=== PATIENT | male | born 1960 | race Caucasian/White ===

== ENCOUNTER 2017-09-26 07:29 | Day surgery (SDC) | payer BC, OTHER ==
[2017-09-22 07:19] VITALS: BMI 41.0
[~2017-09-26] VITALS: Ht 165.1 cm; Wt 114.1 kg
[~2017-09-26 07:29] MED LIST: ASPI81TA28 PO; ATROPINE SULFATE 0.1 MG/ML 5ML SYR IV PRN; EpHEDrine SULFATE INJ 50 MG/ML AMP IV PRN; FENTANYL CITRATE INJ 50 MCG/1 ML 2 ML VIAL IV PRN; HYDROmorphone INJ 1 MG/ML SYR IV PRN; LACTATED RINGER'S 1000ML 1,000 ML IV SCH; MULT-221 PO; OMEP40CA41 PO; ONDANSETRON INJ 2 MG/ML 2 ML VIAL IV PRN; PHENYLEPHRINE 100MCG/ML 5ML SYR IV PRN; PROMETHAZINE HCL INJ 12.5 MG in SODIUM CHLORIDE 0.9% 50ML 50 ML IV PRN; SIMV10TA2 PO
[2017-09-26 08:17] VITALS: BP 136/76; PULSE 68; TEMP 36.7; O2SAT 96; Ht 165.1 cm; Wt 114.1 kg
--- NOTE | 2017-09-26 09:11 | History & Physical Bridge Note ---
H&P Re-Evaluation Bridge Note: I have examined the patient, reviewed the History & Physical and in the interval since the performance of the History & Physical I have noted the following changes of clinical significance: No changes noted
[2017-09-26] MEDS ORDERED: SODIUM CHLORIDE 0.9% 1000ML 1,000 ML IV SCH (09:31)
--- NOTE | 2017-09-26 09:31 | Discharge Instructions ---
Discharge Instructions Date of Service Sep 26, 2017. Admission Reason for Admission: Vocal Cord Polyp Discharge Discharge Diagnosis / Problem: Right vocal cord lesion Discharge Goals Goal(s): Improve function Activity Recommendations Activity Limitations: resume your previous activity No speaking or whispering for one week. . Current Hospital Diet Patient's current hospital diet: Discharge Diet Recommended Diet: Regular Diet Procedures Procedures Performed: Microdirect laryngoscopy with biopsy of a right true vocal cord lesion and use of CO2 laser. Pending Studies Studies pending at discharge: no Medical Emergencies . Who to Call and When: Medical Emergencies: If at any time you feel your situation is an emergency, please call 911 immediately. . Non-Emergent Contact Non-Emergency issues call your: Specialist . . "Provider Documentation" section prepared by Parish Vick. .
[2017-09-26] MEDS ORDERED: SUCCINYLCHOLINE CHLORIDE 20 MG/ML 10 ML VIAL IV ONE ×2 (09:39→10:41)
[2017-09-26] MEDS ORDERED: FENTANYL CITRATE INJ 50 MCG/1 ML 2 ML VIAL ONE ×2 (09:39→11:05)
[2017-09-26] MEDS ORDERED: PROPOFOL IV EMULSION 10 MG/ML 20 ML VIAL IV ONE ×2 (09:39→10:41)
[2017-09-26] MEDS ORDERED: LIDOCAINE HCL 2% 2 ML VIAL (20MG/ML) ONE ×2 (09:39→10:41)
[2017-09-26] MEDS ORDERED: MIDAZOLAM HCL 1 MG/ML 2ML VIAL ONE ×2 (09:39→11:05)
[2017-09-26] MEDS ORDERED: ACETAMINOPHEN/HYDROCODONE ELIX 15 ML/CUP UDP PO PRN (09:45)
[2017-09-26] MEDS ORDERED: COCAINE HCL 4% / 4 ML VIAL ONE (10:07)
[2017-09-26] MEDS ORDERED: METHYLENE BLUE 0.5% 10 ML VIAL ONE (10:17)
[2017-09-26] MEDS ORDERED: ROCURONIUM BROMIDE 10 MG/ML 5 ML VIAL IV ONE ×2 (10:45→10:58)
[2017-09-26] MEDS ORDERED: GLYCOPYRROLATE INJ 0.2 MG/ML VIAL ONE (10:58)
[2017-09-26] MEDS ORDERED: ONDANSETRON INJ 2 MG/ML 2 ML VIAL ONE (10:58)
[2017-09-26] MEDS ORDERED: NEOSTIGMINE METHYLSULFATE 5 MG/5 ML SYR ONE (10:58)
--- NOTE | 2017-09-26 10:59 | [facility] Post Operative Brief Note ---
Immediate Operative Summary Operative Date Sep 26, 2017. Pre-Operative Diagnosis Right vocal cord polyp Post-Operative Diagnosis Same Procedure(s) Performed Microdirect laryngoscopy with biopsy of a right true vocal cord lesion and use of CO2 laser. Surgeon Nava Technical Systems Architect Surgeon(s) None Estimated Blood Loss 0ml Findings Consistent with Post-Op Diagnosis Specimens A. Right true vocal cord polyp Anesthesia Type General Complication(s) none Disposition Accompanied Pt To Recover: no Disposition: Recovery Room / PACU
--- NOTE | 2017-09-26 11:10 | [facility] Operative Report ---
Operative Report Operative Date Sep 26, 2017. Pre-Operative Diagnosis Right vocal cord polyp Post-Operative Diagnosis Same Procedure(s) Performed Microdirect laryngoscopy with biopsy of a right true vocal cord lesion and use of CO2 laser. Surgeon Nava Retinal Angiographer Surgeon(s) None Estimated Blood Loss 0ml Specimens A. Right true vocal cord polyp Drains None Anesthesia Type General Complication(s) none Disposition no Recovery Room / PACU Indications 56 year old man with dysphonia and right true vocal cord polyp with failure of medical management. Description of Procedure After uneventful intubation, the laser protected ET tube was taped and the patient turned 90 degrees from the anesthesiologist. Teeth were protected with the dental protective device, and the Dedo scope was found to be too large. Therefore the anterior commissure scope was introduced, and held in good position with the Pro suspension device. The subglottis and glottis packed with neurosurgical pledgets soaked in 4% cocaine. Then, the polyp was grasped with a micro-cupped forceps and removed almost in its entirety. Another neurosurgical pledgets soaked in 4% cocaine was placed over the biopsy site for one minute, while anesthesia allowed the ventilation 02 to be at 30% for one minute. The Elevate hand piece for the CO2 laser was used on 4 Carpenter continuous to treat the base of the polyp, and this stopped all bleeding. Anterior commissure scope, Pro suspension device, and dental protective device were removed. Patient was allowed to wake-up on his own and was transported to recovery in [facility]. I attest to the content of the Intraoperative Record and any orders documented therein. Any exceptions are noted below.
[2017-09-26 12:20] VITALS: BP 127/81; PULSE 76; TEMP 36.9; O2SAT 92
[2017-09-26 12:50] VITALS: BP 132/80; PULSE 76; TEMP 36.9; O2SAT 95
--- NOTE | 2017-09-26 13:04 | Anesthesiology Progress Note ---
Anesthesia Post Op Note Date & Time Sep 26, 2017 at 13:04 Vital Signs Pain Intensity: 4 Vital Signs Past 12 Hours Date Time Temp Pulse Resp B/P (MAP) Pulse Ox O2 Delivery O2 Flow Rate FiO2 09/26/17 12:20 36.9 76 20 127/81 92 Nasal Cannula 3 09/26/17 12:00 73 20 130/87 92 Nasal Cannula 2 09/26/17 11:50 37.1 73 20 142/91 92 Nasal Cannula 2 09/26/17 11:40 75 16 154/90 98 Room Air 09/26/17 11:30 83 16 168/88 98 Oxymask 7 09/26/17 11:20 36.5 82 16 184/78 97 Oxymask 7 09/26/17 08:17 36.7 68 18 136/76 (96) 96 Room Air Notes Mental Status: alert / awake / arousable, participated in evaluation Pt Amnestic to Procedure: Yes Nausea / Vomiting: adequately controlled Pain: adequately controlled Airway Patency, RR, SpO2: stable & adequate BP & HR: stable & adequate Hydration State: stable & adequate Anesthetic Complications: no major complications apparent
== END 2017-09-26 13:13 | disposition home or self-care (01) ==
LOC: C.ACU 07:29
PROVIDERS: ATTEND Otolaryngology
DX: J38.1 Polyp of vocal cord and larynx (principal); R49.0 Dysphonia; K21.9 Gastro-esophageal reflux disease without esophagitis; F17.220 Nicotine dependence, chewing tobacco, uncomplicated; E78.5 Hyperlipidemia, unspecified; E66.9 Obesity, unspecified; H90.3 Sensorineural hearing loss, bilateral; Z79.82 Long term (current) use of aspirin; Z79.899 Other long term (current) drug therapy; Z81.8 Family history of other mental and behavioral disorders; Z82.49 Family history of ischemic heart disease and other diseases of the circulatory system

== ENCOUNTER 2020-12-10 06:03 | Observation (INO) ==
--- NOTE | 2020-11-10 11:04 | PAT Medication Instructions ---
Medication Instructions Date of Service November 10, 2020 Home Medications aspirin 81 mg PO QPM multivitamin 1 tab PO QPM omeprazole 40 mg PO QPM simvastatin 10 mg PO PM meloxicam 15 mg PO QAM ASK your surgeon for instructions meloxicam 15 mg PO QAM Take evening before surgery aspirin 81 mg PO QPM (take as normal unless told otherwise by surgeon) multivitamin 1 tab PO QPM omeprazole 40 mg PO QPM simvastatin 10 mg PO PM Other Notes If you have any questions please call us at [phone] or [phone] or [phone] or [phone]
--- NOTE | 2020-11-12 11:11 | Anesthesiology Consultation ---
Date of Service November 12, 2020 Assessment & Plan (1) Encounter for pre-operative examination: - COVID screening: Per assessment on 11/12: Travel screen negative, no known COVID-19 positive contacts or current COVID-19 related symptoms. Patient was personally COVID positive early 06/2020 ([facility], [facility]) > symptoms at time of URI symptoms, rhinorrhea, decreased taste > resolved/recovered at home. Patient fully vaccinated. Surgeon arranging preop COVID testing. Awaiting results. - Hx glidescope intubation: Right shoulder arthroscopy with large RCR (06/13/19): Grade 1 view with Glidescope #4, ETT 8.0 + PNB at [facility] - ASA instructions: to continue perioperatively unless told otherwise by surgeon/prescriber Chart Review Chart Review: Acceptable Risk for Surgery (pending surgeon-ordered PCP clearance) and Patient seen in Pre Admission Testing Teaching & Discussion Pre-Anesthesia Teaching/Discussion Notes: Instructed NPO after midnight before surgery,except medications with 15 cc of water. Medication instructions provided according to the PAT guidelines. History Surgery Operation Date: 12/10/20 11:00 Proposed Procedures p Right Total Knee Arthroplasty - Colin Hoskins MD Height/Weight Height: 5 ft 4 in Weight: 103.8 kg Allergies Allergy/AdvReac Type Severity Reaction Status Date / Time latex Allergy Skin Verified 11/10/20 11:01 redness Medications Home Medications Medication Instructions Recorded Confirmed Last Taken aspirin 81 mg PO QPM 05/10/19 11/10/20 06/12/19 multivitamin 1 tab PO QPM 05/10/19 11/10/20 06/12/19 omeprazole 40 mg PO QPM 05/10/19 11/10/20 06/12/19 simvastatin 10 mg PO PM 05/10/19 11/10/20 06/12/19 meloxicam 15 mg PO QAM 11/10/20 11/10/20 Unknown Past Medical History Medical History GERD (gastroesophageal reflux disease) controlled History of COVID-19 Dx early 06/2020 ([facility], [facility]) > symptoms at time of URI symptoms, rhinorrhea, decreased taste > resolved/recovered at home Hyperlipidemia Osteoarthritis Exercise / Class Metabolic Activity II 4-5 Yardwork/Stairs/Walk up hill (one flight of stairs (no chest pain, no sob)) Past Family History Family History Other No known health problems Past Surgical History Surgical History History of arthroscopy of shoulder Right shoulder arthroscopy with large RCR (06/13/19): Grade 1 view with Glidescope #4, ETT 8.0 + PNB at [facility] History of back surgery Lower lumbar fusion (as teen) History of colonoscopy History of esophagogastroduodenoscopy (EGD) History of meniscectomy of left knee History of right inguinal hernia repair History of vasectomy History of vocal cord polypectomy Vocal cord polyp excision (09/26/17): Grade view 2, Diehl#2, 6.0 laser tube/glidescope used to verify placement History of wisdom tooth extraction Status post LASIK surgery Past Anesthesia History No Family Hx of Anesthesia Complications and Other Patient states that he was moving too much during PNB placement with shoulder surgery (2019; [facility]) and needed "to be put to sleep" in order to place. Patient reports post-op low oxygen levels after shoulder surgery (2019; [facility]). Per anesthesia communication note 06/13/19, "Oxygen saturations in seconary pacu as low as low 80s. Decreased air movement in R Lung. Patient asymptomatic sitting in chair. We did ISB and checked CXR, showing hemidiaphragm elevation and atelectasis secondary to the block. had the patient walk twice down hallway which he had mild dyspnea but did not have to stop. saturations up to low 90s. I spoke at length with the patient and his about dispo vs obs overnight in the hospital, and they prefer dispo to home. I suspect this is due to the short acting bupivicane in the block and should improve in 8-12 hours. However, we discussed keeping mobile as much as possible today, and avoiding all narcotics today as well (the patient is currently pain free with the block). If he has any progression of his dyspnea or any change in his level of conciousness, his will present him to the ER near their home. Any rapid onset of symptoms will prompt a 911 call. The patient and his are comfortable with this plan." History of PONV No Hx of PONV and No Hx of Motion Sickness Social History Smoking Status: Former smoker tobacco type: cigarettes Do You Dip or Chew Tobacco: Yes (1 can/week- advised none DOS) Smoking End Date: Quit 8+ years ago Hx Alcohol Use: Yes Alcohol type: beer alcohol intake frequency: a few times a week Hx Substance Use: No Review of Systems No snoring. Patient denies chest pain, shortness of breath, dyspnea on exertion, fever, chills, cough, wheezing, palpitations. Physical Exam Vital Signs VITALS BP 138/81 P 66 TEMP 98.4 SP02 96%RA RESP 18 PHYSICAL Full cervical extension range of motion. Full TMJ range of motion. TMD 4 finger breaths Mallampati Score 3 Dentition: intact Lungs: clear throughout to auscultation Cardiac: regular rate and rhythm, no murmurs noted Spine: normal Carotid arteries: negative bruit Extremities: no edema Trimmed camilo Thick neck Testing Laboratory Results 11/12/20 11:59 11/12/20 11:59 PT 10.8 Seconds (9.0-12.0) 11/12/20 11:59 INR 1.1 (0.9-1.1) 11/12/20 11:59 APTT 27.1 Seconds (21.0-31.0) 11/12/20 11:59 Hemoglobin A1c 5.9 % (4.5-5.6) H 11/12/20 11:59 Urine Color Yellow 11/12/20 Unknown Urine Appearance Clear (Clear) 11/12/20 Unknown Urine pH 6.5 (4.5-7.5) 11/12/20 Unknown Ur Specific [place] 1.024 (1.000-1.030) 11/12/20 Unknown Urine Protein Negative (Negative) 11/12/20 Unknown Urine Glucose (UA) Negative (Negative) 11/12/20 Unknown Urine Ketones Negative (Negative) 11/12/20 Unknown Urine Nitrite Negative (Negative) 11/12/20 Unknown Ur Leukocyte Esterase Negative (Negative) 11/12/20 Unknown Blood Type O Positive 11/12/20 11:59 Antibody Screen NEGATIVE 11/12/20 11:59 Electrocardiogram Date: 11/12/20 Findings: + NSR @ (60) Chest X-Ray Date: 11/12/20 Findings: + NAD
[2020-11-12 12:29] LABS: Basophils # (auto) 0.02 K/uL (0-0.2); Basophils % (auto) 0.4 %; Eosinophils # (auto) 0.19 K/uL (0-0.5); Eosinophils % (auto) 3.7 %; Hematocrit (blood only) 42.7 % (42-52); Immature Granulocytes # (auto) 0.01 K/uL (0.00-0.02); Immature Granulocytes % (auto) 0.2 %; Lymphocytes # (auto) 2.33 K/uL (1.2-3.4); Lymphocytes % (auto) 45.5 %; Mean Corpuscular Hgb Conc 32.8 g/dL (32-36); Mean Corpuscular Volume 100.7 fL (80-100); Mean Platelet Volume 12.3 fL (7.4-10.4); Monocytes # (auto) 0.63 K/uL (0.11-0.59); Monocytes % (auto) 12.3 %; Neutrophils # (auto) 1.94 K/uL (1.4-6.5); Neutrophils % (auto) 37.9 %; Platelet Count 150 K/uL (130-400); RDW Coefficient of Variation 13.6 % (11.5-14.5); RDW Standard Deviation 50.1 fL (36.4-46.3); Red Blood Count 4.24 M/uL (4.7-6.1); White Blood Count 5.12 K/uL (4.8-10.8)
[2020-11-12 12:33] LABS: Estimated Average Glucose 123 mg/dl; Hemoglobin A1C 5.9 % (4.5-5.6)
[2020-11-12 12:37] LABS: Appearance Urine Clear (Clear); Bilirubin Urine Negative (Negative); Blood Urine Negative (Negative); Color Urine Yellow; Glucose Urine UA Negative (Negative); Ketones Urine Negative (Negative); Leukocyte Esterase Urine Negative (Negative); Nitrite Urine Negative (Negative); Protein Urine Negative (Negative); Specific Gravity Urine 1.024 (1.000-1.030); Urobilinogen Urine Negative (Negative); pH Urine 6.5 (4.5-7.5)
[2020-11-12 12:37] LABS: INR 1.1 (0.9-1.1); Partial Thromboplastin Time 27.1 Seconds (21.0-31.0); Prothrombin Time 10.8 Seconds (9.0-12.0)
--- NOTE | 2020-11-12 12:42 | XRay Report ---
XR chest Pre-admission PA/Lat CLINICAL HISTORY: Preoperative evaluation. COMPARISON STUDY: Chest radiograph June 13, 2019. FINDINGS: Lung volumes are normal. Lungs are clear. There is no pneumothorax or pleural effusion. Car diac size is normal. Mediastinal contours are normal. There is no evidence for pulmonary edema. IMPRESSION: No acute cardiopulmonary findings. ACT 112: Negative or not required by law. Electronically signed by: Ilya Barbour M.D. 11/12/2020 12:41 PM
[2020-11-12 12:46] LABS: BUN Creatinine Ratio 28.7 (10-20); Calcium 9.1 mg/dl (8.5-10.1); Creatinine Clr Calc Pharmacy 108.4 ml/min; Est GFR (African American) 112.9 ml/min; Est GFR (Non-African American) 97.4 ml/min; Potassium 4.2 mmol/L (3.5-5.1)
--- NOTE | 2020-11-13 06:14 | Electrocardiogram Report ---
Test Reason : Blood Pressure : / mmHG Vent. Rate : 060 BPM Atrial Rate : 060 BPM P-R Int : 162 ms QRS Dur : 088 ms QT Int : 400 ms P-R-T Axes : 071 065 051 degrees QTc Int : 400 ms Normal sinus rhythm Normal ECG When compared with ECG of 13-MAY-2019 10:44, No significant change was found Confirmed by Km Lopez ([id number]) on 11/13/2020 6:14:15 AM Referred By: Colin Hoskins Confirmed By:Km Lopez
--- NOTE | 2020-12-08 21:53 | History & Physical Report ---
Date of Service December 08, 2020 Assessment & Plan (1) Primary osteoarthritis of right knee: Treatment options discussed with patient. He has failed conservative measures as above. He would like to proceed with surgical intervention. Risks, benefits and alternatives to surgery including but not limited to infection, DVT, pain, stiffness, need for revision surgery, damage to blood vessels, damage to nerves, PE, , were discussed with the patient and they wish to proceed. Plan on right total knee arthroplasty at [facility] on 12/10/[address] Hoskins. Will plan on ASA 81 mg BID x 1 mo post op for DVT prophylaxis. Will plan on outpatient PT post discharge. All questions answered. F/u post op. History of Present Illness Chief Complaint: Right knee pain Primary Care Provider: Micah Fabian 60 year old male with PMHx significant for high cholesterol and GERD presents with longstanding right knee pain. Pain interfering with his ability to carry out normal daily and leisure activities. He has failed conservative measures including multiple injections, bracing, NSAIDs, and Tylenol. He would like to proceed with surgical intervention. Patient denies headaches, sweats, fevers, chills, double vision, blurred vision, cough, sore throat, dysphagia, chest pain, sob, wheezing, n/v/d/c, numbness, tingling, fatigue, urinary symptoms, mood disorders. ROS positive for right knee pain and stiffness. Allergies Allergy/AdvReac Type Severity Reaction Status Date / Time latex Allergy Skin Verified 11/10/20 11:01 redness Home Medications Medication Instructions Recorded Confirmed Type aspirin 81 mg PO QPM 05/10/19 11/10/20 History multivitamin 1 tab PO QPM 05/10/19 11/10/20 History omeprazole 40 mg PO QPM 05/10/19 11/10/20 History simvastatin 10 mg PO PM 05/10/19 11/10/20 History meloxicam 15 mg PO QAM 11/10/20 11/10/20 History Past Med/Surg History Medical History GERD (gastroesophageal reflux disease) controlled History of COVID-19 Dx early 06/2020 ([facility], [facility]) > symptoms at time of URI symptoms, rhinorrhea, decreased taste > resolved/recovered at home Hyperlipidemia Osteoarthritis Surgical History History of arthroscopy of shoulder Right shoulder arthroscopy with large RCR (06/13/19): Grade 1 view with Glidescope #4, ETT 8.0 + PNB at [facility] History of back surgery Lower lumbar fusion (as teen) History of colonoscopy History of esophagogastroduodenoscopy (EGD) History of meniscectomy of left knee History of right inguinal hernia repair History of vasectomy History of vocal cord polypectomy Vocal cord polyp excision (09/26/17): Grade view 2, Diehl#2, 6.0 laser tube/glidescope used to verify placement History of wisdom tooth extraction Status post LASIK surgery Family History Other No known health problems Social History Smoking Status: Former smoker Second Hand Exposure: Yes (PARENTS SMOKED); Hx Alcohol Use: Yes Alcohol type: beer Hx Substance Use: No Preferred Language: Malay Communication Ability: Effective 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 Mild effusion. Mild crepitation. Tenderness medial joint line. Stable to varus stress, mild laxity with valgus stress. Positive Bhupendra's. ROM 0-125 degrees. Skin: no rashes, warm and dry Neurologic: patellar DTR's 2+ bilat, sensation intact Psychiatric: A+Ox3, euthymic affect Results & Data ([facility]) Laboratory Results Lab Results 11/12/20 11/12/20 11/12/20 Range/Units 11:59 11:59 11:59 WBC 5.12 (4.8-10.8) K/uL RBC 4.24 L (4.7-6.1) M/uL Hgb 14.0 (14.0-18.0) g/dL Hct 42.7 (42-52) % MCV 100.7 H (80-100) fL MCH 33.0 (25-34) pg MCHC 32.8 (32-36) g/dL RDW Std Deviation 50.1 H (36.4-46.3) fL RDW Coeff of Kaylin 13.6 (11.5-14.5) % Plt Count 150 (130-400) K/uL MPV 12.3 H (7.4-10.4) fL Immature Gran % (Auto) 0.2 % Neut % (Auto) 37.9 % Lymph % (Auto) 45.5 % [place] % (Auto) 12.3 % Eos % (Auto) 3.7 % Baso % (Auto) 0.4 % Neut # (Auto) 1.94 (1.4-6.5) K/uL Lymph # (Auto) 2.33 (1.2-3.4) K/uL [place] # (Auto) 0.63 H (0.11-0.59) K/uL Eos # (Auto) 0.19 (0-0.5) K/uL Baso # (Auto) 0.02 (0-0.2) K/uL Immature Gran # (Auto) 0.01 (0.00-0.02) K/uL PT 10.8 (9.0-12.0) Seconds INR 1.1 (0.9-1.1) APTT 27.1 (21.0-31.0) Seconds PTT Ratio 1.0 Sodium (136-145) mmol/L Potassium (3.5-5.1) mmol/L Chloride (98-107) mmol/L Carbon Dioxide (21-32) mmol/L Anion Gap (3-11) BUN (7-18) mg/dl Creatinine (0.6-1.4) mg/dl Est Cr Clr Drug Dosing ml/min Est GFR ( Amer) ml/min Est GFR (Non-Af Amer) ml/min BUN/Creatinine Ratio (10-20) Glucose (70-99) mg/dl Estimat Average Glucose mg/dl Hemoglobin A1c (4.5-5.6) % Calcium (8.5-10.1) mg/dl Albumin (3.4-5.0) gm/dl Urine Color Urine Appearance (Clear) Urine pH (4.5-7.5) Ur Specific [place] (1.000-1.030) Urine Protein (Negative) Urine Glucose (UA) (Negative) Urine Ketones (Negative) Urine Blood (Negative) Urine Nitrite (Negative) Urine Bilirubin (Negative) Urine Urobilinogen (Negative) Ur Leukocyte Esterase (Negative) Blood Type O Positive Antibody Screen NEGATIVE 11/12/20 11/12/20 11/12/20 Range/Units 11:59 11:59 Unknown WBC (4.8-10.8) K/uL RBC (4.7-6.1) M/uL Hgb (14.0-18.0) g/dL Hct (42-52) % MCV (80-100) fL MCH (25-34) pg MCHC (32-36) g/dL RDW Std Deviation (36.4-46.3) fL RDW Coeff of Kaylin (11.5-14.5) % Plt Count (130-400) K/uL MPV (7.4-10.4) fL Immature Gran % (Auto) % Neut % (Auto) % Lymph % (Auto) % [place] % (Auto) % Eos % (Auto) % Baso % (Auto) % Neut # (Auto) (1.4-6.5) K/uL Lymph # (Auto) (1.2-3.4) K/uL [place] # (Auto) (0.11-0.59) K/uL Eos # (Auto) (0-0.5) K/uL Baso # (Auto) (0-0.2) K/uL Immature Gran # (Auto) (0.00-0.02) K/uL PT (9.0-12.0) Seconds INR (0.9-1.1) APTT (21.0-31.0) Seconds PTT Ratio Sodium 139 (136-145) mmol/L Potassium 4.2 (3.5-5.1) mmol/L Chloride 107 (98-107) mmol/L Carbon Dioxide 28 (21-32) mmol/L Anion Gap 4.0 (3-11) BUN 22 H (7-18) mg/dl Creatinine 0.78 (0.6-1.4) mg/dl Est Cr Clr Drug Dosing 108.4 ml/min Est GFR ( Amer) 112.9 ml/min Est GFR (Non-Af Amer) 97.4 ml/min BUN/Creatinine Ratio 28.7 H (10-20) Glucose 94 (70-99) mg/dl Estimat Average Glucose 123 mg/dl Hemoglobin A1c 5.9 H (4.5-5.6) % Calcium 9.1 (8.5-10.1) mg/dl Albumin 4.0 (3.4-5.0) gm/dl Urine Color Yellow Urine Appearance Clear (Clear) Urine pH 6.5 (4.5-7.5) Ur Specific [place] 1.024 (1.000-1.030) Urine Protein Negative (Negative) Urine Glucose (UA) Negative (Negative) Urine Ketones Negative (Negative) Urine Blood Negative (Negative) Urine Nitrite Negative (Negative) Urine Bilirubin Negative (Negative) Urine Urobilinogen Negative (Negative) Ur Leukocyte Esterase Negative (Negative) Blood Type Antibody Screen Diagnostic Findings Right knee: Bone on bone medial compartment with periarticular osteophyte formation, arthritic change patellofemoral compartment
[~2020-12-10 06:03] MED LIST changes: +ACETAMINOPHEN 500 MG TAB PO SCH; -ASPI81TA28 PO; -ATROPINE SULFATE 0.1 MG/ML 5ML SYR IV PRN; +CeleBREX 200 MG CAP PO SCH; -EpHEDrine SULFATE INJ 50 MG/ML AMP IV PRN; +FAMOTIDINE 20 MG TAB PO SCH; -FENTANYL CITRATE INJ 50 MCG/1 ML 2 ML VIAL IV PRN; +GABAPENTIN 600 MG DOSE PO SCH; -HYDROmorphone INJ 1 MG/ML SYR IV PRN; -LACTATED RINGER'S 1000ML 1,000 ML IV SCH; +LR 500ML BOLUS, THEN 15ML/HR IV SCH; +METOCLOPRAMIDE HCL 10 MG TABLET PO SCH; -MULT-221 PO; -OMEP40CA41 PO; -ONDANSETRON INJ 2 MG/ML 2 ML VIAL IV PRN; -PHENYLEPHRINE 100MCG/ML 5ML SYR IV PRN; -PROMETHAZINE HCL INJ 12.5 MG in SODIUM CHLORIDE 0.9% 50ML 50 ML IV PRN; +ROPIVACAINE 0.5% HCL/PF 150 MG, BUPIVACAINE 0.75% MPF 20 ML, EPINEPHrine 30MG/30ML (OR ... INSTIL SCH; -SIMV10TA2 PO; +TRANEXAMIC ACID 1,000 MG **IV Intra-op IV SCH; +TRANEXAMIC ACID 1,000 MG **IV Pre-op IV SCH; +ceFAZolin 2000MG 2,000 MG/15 ML SYR IV SCH; +dexAMETHasone 4 MG TAB PO SCH
[2020-12-10] MEDS ORDERED: EPINEPHrine INJ 1 MG/ML AMP ONE (06:29)
[2020-12-10] MEDS ORDERED: DEXAMETHASONE SOD INJ 4 MG/ML VIAL ONE (06:29)
[2020-12-10] MEDS ORDERED: BUPIVACAINE 0.5 % 5 MG/1 ML PF 10ML VIAL ONE (06:29)
[2020-12-10] MEDS ORDERED: BUPIVACAINE 0.25% 30 ML VIAL ONE (06:29)
[2020-12-10] MEDS ORDERED: ePHEDrine sulfate 50 MG/ML SYR ONE (07:02)
[2020-12-10] MEDS ORDERED: PHENYLEPHRINE 100MCG/ML 5ML SYR ONE (07:02)
[2020-12-10] MEDS ORDERED: LIDOCAINE 2% 2 ML VIAL/AMP(20MG/ML) INFIL ONE (07:02)
[2020-12-10] MEDS ORDERED: PROPOFOL IV EMULSION 10 MG/ML 20 ML VIAL IV ONE ×2 (07:02→08:38)
[2020-12-10] MEDS ORDERED: MIDAZOLAM HCL 1 MG/ML 2ML VIAL ONE ×3 (07:03→08:38)
[2020-12-10] MEDS ORDERED: fentaNYL citrate 100 MCG/2 ML VIAL ONE (07:04)
--- NOTE | 2020-12-10 07:30 | History & Physical Bridge Note ---
Date of Service December 10, 2020 History & Physical Bridge Note I have examined the patient, reviewed the History & Physical and in the interval since the performance of the History & Physical I have noted the following changes of clinical significance: no changes noted
[2020-12-10] MEDS ORDERED: ORTHO JOINT ANESTHETIC ONE (08:29)
[2020-12-10] MEDS ORDERED: ePHEDrine sulfate 50 MG/ML AMP IV PRN (09:08)
[2020-12-10] MEDS ORDERED: HYDROmorphone INJ 2 MG/ML SYR/VIAL IV PRN (09:08)
[2020-12-10] MEDS ORDERED: METOCLOPRAMIDE HCL INJ 5 MG/ML 2 ML VIAL IV PRN (09:08)
[2020-12-10] MEDS ORDERED: ATROPINE SULFATE 0.1 MG/ML 10ML SYR IV PRN (09:08)
[2020-12-10] MEDS ORDERED: fentaNYL citrate 100 MCG/2 ML VIAL IV PRN (09:08)
[2020-12-10] MEDS ORDERED: PROMETHAZINE HCL 12.5 MG in SODIUM CHLORIDE 0.9% 50 ML IV PRN (09:08)
[2020-12-10] MEDS ORDERED: ONDANSETRON INJ 2 MG/ML 2 ML VIAL IV PRN ×2 (09:08→12:56)
[2020-12-10] MEDS ORDERED: ONDANSETRON INJ 2 MG/ML 2 ML VIAL ONE (09:48)
--- NOTE | 2020-12-10 10:53 | Post Operative Brief Note ---
Immediate Post Op Note v1 Date of Surgery December 10, 2020 Pre & Post Diagnosis Operation Date: 12/10/20 08:40 Pre-Op Diagnosis: Unilateral Primary Osteoarthritis,Right Knee, obesity BMI 38.8 Post-Op Diagnosis: Unilateral Primary Osteoarthritis,Right Knee, obesity BMI 30.8 I identified the patient and participated in the time-out.: Yes Procedure Operation Date: 12/10/20 08:40 Actual Procedures p Right Total Knee Arthroplasty(Right), superficial wound VAC- Colin Hoskins MD Surgeon Colin Hoskins MD Pump Technician Antoni MADRIGAL Estimated Blood Loss 5 Findings Consistent with Post-Op Diagnosis Specimens Bone cuts Drains Hemovac Drain Anesthesia Type MAC Spinal Regional Complications none Disposition Accompanied Patient To Recovery: No Disposition: Recovery Room Overlapping Procedure I was present for: the critical portions of procedure. Back up surgeon: was not required during procedure.
[2020-12-10] MEDS ORDERED: LORazepam 0.5 MG/1 ML VIAL IV PRN (11:17)
--- NOTE | 2020-12-10 11:53 | XRay Report ---
RIGHT KNEE 2 VIEWS History: Right total knee arthroplasty. Degenerative arthritis. Postop. FINDINGS: The patient is status post a right total knee arthroplasty. The hardware is intact. No frac ture or dislocation. Skin woody and surgical drains are in place. IMPRESSION: Right total knee arthroplasty. No evidence for hardware complication. ACT 112: Negative or not required by law. Electronically signed by: Jorge Jeffrey M.D. 12/10/2020 11:51 AM
--- NOTE | 2020-12-10 12:54 | Anesthesiology Progress Note ---
Date of Service December 10, 2020 Anesthesia Post Procedure Vital Signs Vital Signs: Temp Pulse Pulse Resp BP Pulse Ox 12/10/20 12:15 75 16 107/60 94 12/10/20 12:00 59 L 14 105/59 L 94 12/10/20 11:45 36.3 C L 75 17 98/64 L 94 12/10/20 11:35 72 15 109/55 L 94 12/10/20 11:25 78 20 104/61 94 12/10/20 11:15 78 13 113/61 93 12/10/20 11:07 36.0 C L 78 15 110/60 95 12/10/20 06:35 36.8 C 53 L 18 147/89 H 97 Transfer of Care Handoff Completed per policy Notes Mental Status: alert / awake / arousable and participated in evaluation Patient Amnestic to Procedure: Yes Nausea / Vomiting: adequately controlled Pain: adequately controlled Airway Patency, RR, SpO2: stable & adequate BP & HR: stable & adequate Hydration State: stable & adequate Neuraxial Anesthesia: was administered and sensory block is resolving Anesthetic Complications: no major complications apparent
[2020-12-10] MEDS ORDERED: MAGNESIUM HYDROXIDE SUSP 30 ML UDC PO PRN (12:56)
[2020-12-10] MEDS ORDERED: NALOXONE HCL 0.4 MG/1 ML VIAL/CARP IV PRN (12:56)
[2020-12-10] MEDS ORDERED: HYDROmorphone INJ 0.5 MG/0.5 ML SYR IV PRN (12:56)
[2020-12-10] MEDS ORDERED: bisacodyL 10 MG SUPP PR PRN (12:56)
[2020-12-10] MEDS: ACETAMINOPHEN 500 MG TAB PO SCH ×2 (13:27→21:41)
[2020-12-10] MEDS: SODIUM CHLORIDE 0.9% 1000ML 1,000 ML IV SCH ×2 (13:30→21:58)
--- NOTE | 2020-12-10 17:25 | Operative Report ---
Post Operative Report Pre & Post Diagnosis Operation Date: 12/10/20 08:40 Pre-Op Diagnosis: Unilateral Primary Osteoarthritis,Right Knee, obesity BMI 40.1 Post-Op Diagnosis: Unilateral Primary Osteoarthritis,Right Knee, obesity BMI 40.1 I identified the patient and participated in the time-out.: Yes Procedure Operation Date: 12/10/20 08:40 Actual Procedures p Right Total Knee Arthroplasty(Right), lateral release, superficial wound VAC, increased difficulty obesity BMI 40.1- Colin Hoskins MD Surgeon Colin Hoskins MD Dot Net Architect Antoni MADRIGAL Estimated Blood Loss 5 Findings Consistent with Post-Op Diagnosis Specimens Bone cuts Drains 2 Hemovac Anesthesia Type MAC Spinal Regional Complications none Disposition Accompanied Patient To Recovery: No Disposition: Recovery Room Indications 60-year male with severe bilateral end-stage osteoarthritis of the knees [id number] medial compartment bilaterally. He failed conservative management. Description of Procedure Patient was taken to the operating room placed supine on the operating table and anesthetized under spinal MAC regional anesthesia. Exam under anesthesia demonstrated very obese upper thigh short leg no instability mild pseudolaxity axis with joint space loss medially with valgus stress. A pneumatic tourniquet was placed about the very obese thigh of the right lower extremity. The right lower extremity was prepped and draped in usual fashion. The leg was elevated exsanguinated with an Esmarch bandage and the pneumatic was raised to 350 mm mercury. An anterior incision was made across the right knee. The skin was incised longitudinally subcutaneous flaps were elevated and an incision was made through the medial retinaculum extending up into the mid third of the quadriceps tendon and extended down to the medial tibial tubercle. Intra-articular findings demonstrated medial compartment and patellofemoral osteoarthritis close to grade 4 OA patellofemoral joint and clearly grade 4 medial compartment OA [id number] eburnated bone. The knee was exposed by excising the infrapatellar fat pad, excising the meniscal remnants and anterior cruciate ligament. Any inflamed synovial tissue was resected. The fat pad over the anterior femur was resected for placement of the component in that area. The lateral synovial bands were release. The femur was exposed. The custom femoral cutting block was pinned in position. The distal femoral cutting block was applied. The distal femoral cut was made with the oscillating saw. The size 7, 4-in-1 cutting block was placed. The anterior and posterior chamfer cuts were made. The knee was extended and a subperiosteal peel lateral release was performed around the patella. The patella width was measured and width was reproduced using freehand cut technique. The 32 x 8.5 millimeter symmetrical patella was used. 3 drill holes are made for the pegs. The tibia was exposed. A custom tibial cutting block was positioned and drill holes were made for the cutting guide. Cutting guide was placed and the proximal cut was made with the oscillating saw. All osteophytes were resected. The lamina grain receiver was used to assess ligamentous balance and the ligaments were balanced in extension and flexion. This required a medial posterior medial release. The tibia was reexposed and measured for a size E tibial component. This was externally rotated in line with the tibial tubercle and the fixation pins were drilled. The proximal tibia was fashioned with the drill and punch. The size 7 standard CR femoral trial was inserted. The trial MC inserts were used. The 11 MC mm insert gave balanced ligaments through full range of motion. The patella tracked some slight liftoff laterally so well lateral release was performed leaving the synovium intact and the patella tracked centrally. the trials were removed. The orthomix anesthetic cocktail was injected per protocol. The knee was then copiously irrigated with pulsatile lavage antibiotic solution with bacitracin. The final components were cemented with Simplex cement. The final components were [employer] persona size 7 standard CR right femur, E tibia, 11 MC polyethylene for tibia, 32 8.5 symmetrical patella. After the cement cured with the knee in full extension the Betadine soak was used per protocol. The knee joint was copiously irrigated with pulsatile lavage saline solution. 2 drains were brought out laterally and connected to a Hemovac. The quadriceps tendon and medial retinaculum were closed with interrupted gsadwu-oh-phodi #1 Vicryl sutures. The knee was taken through a full range of motion and repair was secure. The subcutaneous tissues were closed with 2-0 Vicryl sutures and skin was closed with woody. There was increased difficulty with his obesity and this led to about a 25-minute increase time surgery. Carson and Acticoat superficial wound VAC applied and the patient tolerated the procedure well. Antoni MADRIGAL my physician corporate legal assistant, assisted in soft tissue retraction instrument management leg positioning the closure application of superficial wound VAC and will participate in the postoperative care of the patient. I attest to the content of the Intraoperative Record and any orders documented therein. Any exceptions are noted below.
[2020-12-10] MEDS: oxyCODONE HCL IR 5 MG TAB (IMMEDIATE RELEASE) PO PRN (17:28)
[2020-12-10] MEDS: ceFAZolin 2000MG 2,000 MG/15 ML SYR IV SCH (17:30)
--- NOTE | 2020-12-10 18:33 | Hospitalist Progress Note ---
Date of Service December 10, 2020 Assessment & Plan (1) Osteoarthritis: Now status post TKA per orthopedics. PT/OT eval and treat. (2) GERD (gastroesophageal reflux disease): No complaints of this at this time. Continue home PPI (3) Hyperlipidemia: Continue home statin. Outpatient follow-up (4) DVT prophylaxis: Per orthopedics (aspirin twice daily) Admission and Anticipated Discharge Date Admission Date: December 10, 2020 Subjective Feeling okay overall. Leg was starting to feel little bit stiffthen whenever he discussed with nursing he realized it was the start of onset of pain as his nerve block was wearing off. He had help getting out of bed and also had some pain medicine and feels much better now. Otherwise no complaints. Past medical history reviewed with patient. No cardiac history. Review of Systems Review of Systems: All systems reviewed & are unremarkable except as noted in HPI & below Physical Exam Physical Exam: General he is awake and alert pleasant no distress. HEENT normocephalic atraumatic mucous membranes moist. Breathing unlabored no access ory muscle use good effort. Skin shows no rashes no pallor or icterus. Neuro shows no focal deficits. He is moving his right leg freely. Skin shows no rashes no pallor or icterus. Results & Data Results & Data ([facility]) Vital Signs (Past 12 Hours) Vital Signs Temp Pulse Pulse Resp BP Pulse Ox 12/10/20 14:47 97.9 F 74 18 137/76 93 12/10/20 13:32 97.7 F 64 18 122/76 92 12/10/20 12:56 98.1 F 74 18 127/80 92 12/10/20 12:54 98.1 F 69 16 127/80 90 12/10/20 12:15 75 16 107/60 94 12/10/20 12:00 59 L 14 105/59 L 94 12/10/20 11:45 97.3 F L 75 17 98/64 L 94 12/10/20 11:35 72 15 109/55 L 94 12/10/20 11:25 78 20 104/61 94 12/10/20 11:15 78 13 113/61 93 12/10/20 11:07 96.8 F L 78 15 110/60 95 12/10/20 06:35 98.2 F 53 L 18 147/89 H 97 PG Care Time/CCT Total # of Minutes Spent Total Time Spent with Patient: Total time spent is greater than 50% in coordination of care (as documented) at patient's floor/unit and/or counseling patient: Coding Level of Care Code 29524 Subseq Hosp Care Lvl 2 Diagnoses Osteoarthritis M19.90 GERD (gastroesophageal reflux disease) K21.9 Hyperlipidemia E78.5 DVT prophylaxis Z29.9
--- NOTE | 2020-12-10 18:33 | Billing Data ---
Date of Service December 10, 2020 Coding Level of Care Code 07592 Subseq Obs Care Lvl 2 Comment disregard [id number]
[2020-12-10] MEDS ORDERED: SIMVASTATIN 10 MG TAB PO SCH (21:00)
[2020-12-10] MEDS ORDERED: SENNA 8.6 MG TAB PO SCH (21:00)
[2020-12-10] MEDS: ASPIRIN 81 MG ECTAB PO SCH (21:39)
[2020-12-10] MEDS: DOCUSATE SODIUM 100 MG CAP PO SCH (21:41)
[2020-12-11] MEDS: oxyCODONE HCL IR 5 MG TAB (IMMEDIATE RELEASE) PO PRN ×3 (00:14→14:31)
[2020-12-11] MEDS: ceFAZolin 2000MG 2,000 MG/15 ML SYR IV SCH (02:04)
[2020-12-11] MEDS: ACETAMINOPHEN 500 MG TAB PO SCH ×2 (06:20→13:52)
[2020-12-11 07:47] LABS: Hematocrit (blood only) 37.3 % (42-52); Hemoglobin 12.3 g/dL (14.0-18.0); Mean Corpuscular Hemoglobin 33.3 pg (25-34); Mean Corpuscular Volume 101.1 fL (80-100); Mean Platelet Volume 11.9 fL (7.4-10.4); Platelet Count 168 K/uL (130-400); RDW Coefficient of Variation 13.6 % (11.5-14.5); RDW Standard Deviation 50.6 fL (36.4-46.3); Red Blood Count 3.69 M/uL (4.7-6.1); White Blood Count 13.93 K/uL (4.8-10.8)
[2020-12-11 08:06] LABS: BUN Creatinine Ratio 20.1 (10-20); Calcium 8.6 mg/dl (8.5-10.1); Creatinine Clr Calc Pharmacy 127.6 ml/min; Est GFR (African American) 120.2 ml/min; Est GFR (Non-African American) 103.7 ml/min; Potassium 3.7 mmol/L (3.5-5.1)
--- NOTE | 2020-12-11 08:08 | Orthopedic Progress Note ---
Date of Service December 11, 2020 Assessment & Plan (1) Primary osteoarthritis of right knee: POD#1 right TKA -Pain management -DVT prophylaxis-SCDs, TEDs, ASA 81mg BID -PT/OT -AM labs-leukocytosis likely reactive due to surgical stress and periop steroids. Hemoglobin at 12.3 from 14 preop -D/c planning-home with OPPT. Will recheck later today after PT to see how therapy went and recheck his hemovac output. Possible d/c today vs tomorrow. Admission and Anticipated Discharge Date Admission Date: December 10, 2020 Subjective Patient is POD#1 right TKA. Doing well this morning, pain controlled. No other complaints. Denies chest pain, sob, dizziness, n/v/d, fever, chills. Review of Systems Review of Systems: All systems reviewed & are unremarkable except as noted in HPI & below Physical Exam Physical Exam: Right knee dressing is c/d/i. toes mobile with good dorsiflexion. No calf tenderness. Distally n/v status and sensation intact. Constitutional: well developed and well nourished; no acute distress Results & Data ([facility]) Vital Signs (Past 12 Hours) Vital Signs Temp Pulse Pulse Resp BP Pulse Ox 12/11/20 07:31 37.0 C 59 L 18 124/70 94 12/11/20 02:25 36.4 C L 70 20 119/69 93 12/10/20 21:55 36.8 C 62 127/70 93
[2020-12-11] MEDS: DOCUSATE SODIUM 100 MG CAP PO SCH (08:47)
[2020-12-11] MEDS: ASPIRIN 81 MG ECTAB PO SCH (08:48)
[2020-12-11] MEDS ORDERED: MULTIVITAMIN TAB PO SCH (09:00)
[2020-12-11] MEDS ORDERED: PANTOprazole 40 MG TAB PO SCH (09:00)
--- NOTE | 2020-12-11 19:37 | Hospitalist Progress Note ---
Date of Service December 11, 2020 Assessment & Plan (1) Osteoarthritis: Per orthopedics. (2) GERD (gastroesophageal reflux disease): No complaint. Continue home PPI (3) Hyperlipidemia: Discharge on home meds, PCP follow-up (4) DVT prophylaxis: Per orthopedics (aspirin twice daily) (5) Macrocytosis: Nonspecificdiscussed outpatient B12 level, otherwise outpatient follow-up (6) Impaired glucose tolerance: As noted in subjectivehe is actually been doing much better with avoiding simple/starchy/bready/sugary carbohydrates and is also been losing weightwe discussed that it is quite possible that his A1c worsening now is on the way down. Discussed physiology of type 2 diabetes and how lifestyle change should be able to avert ever becoming diabetic. Outpatient/PCP follow-up. Admission and Anticipated Discharge Date Admission Date: December 10, 2020 Subjective feeling good overall. discussed A1c - he notes that acutally he's been eating less simple carbs and losing weight over the last year - so quite possible that his A1c is on the way down discussed mild macrocytosis and should check B12 as outpt otherwise no new complaints. seems hopeful to go home today. Review of Systems Review of Systems: All systems reviewed & are unremarkable except as noted in HPI & below Physical Exam Physical Exam: General he is awake and alert pleasant no distress. HEENT normocephalic atraumatic mucous membranes moist. Breathing unlabored no accessory muscle use good effort. Skin shows no rashes no pallor or icterus. Results & Data Results & Data ([facility]) Vital Signs (Past 12 Hours) Vital Signs Temp Pulse Pulse Resp BP Pulse Ox 12/11/20 13:59 98.1 F 84 70 20 124/73 92 12/11/20 11:33 98.1 F 84 20 124/73 92 PG Care Time/CCT Total # of Minutes Spent Total Time Spent with Patient: Total time spent is greater than 50% in coordination of care (as documented) at patient's floor/unit and/or counseling patient: Coding Level of Care Code 18373 Subseq Hosp Care Lvl 2 Diagnoses Osteoarthritis M19.90 GERD (gastroesophageal reflux disease) K21.9 Hyperlipidemia E78.5 DVT prophylaxis Z29.9 Macrocytosis D75.89 Impaired glucose tolerance R73.02
--- NOTE | 2020-12-12 13:05 | Discharge Summary ---
Date of Service December 12, 2020 Admission HPI Per Admitting Provider 60 year old male with PMHx significant for high cholesterol and GERD presents with longstanding right knee pain. Pain interfering with his ability to carry out normal daily and leisure activities. He has failed conservative measures including multiple injections, bracing, NSAIDs, and Tylenol. He would like to proceed with surgical intervention. Patient denies headaches, sweats, fevers, chills, double vision, blurred vision, cough, sore throat, dysphagia, chest pain, sob, wheezing, n/v/d/c, numbness, tingling, fatigue, urinary symptoms, mood disorders. ROS positive for right knee pain and stiffness. Admission Exam Per Admitting Provider Physical Exam Constitutional: well developed and well nourished; no acute distress Eyes: PERRL, conjunctivae normal, anicteric sclerae ENMT: external ear and nose normal, oropharynx normal Neck: trachea midline, no thyromegaly Respiratory: normal respiratory effort, lungs clear to auscultation Cardiovascular: RRR, no murmur, no edema Musculoskeletal: Right knee: Varus alignment. Mild effusion. Mild crepitation. Tenderness medial joint line. Stable to varus stress, mild laxity with valgus stress. Positive Bhupendra's. ROM 0-125 degrees. Skin: no rashes, warm and dry Neurologic: patellar DTR's 2+ bilat, sensation intact Psychiatric: A+Ox3, euthymic affect Principal Diagnosis Right knee osteoarthritis Discharge Data Allergies Allergy/AdvReac Type Severity Reaction Status Date / Time latex AdvReac Mild Skin Verified 12/10/20 11:12 redness Consultations 12/07/20 12:15 Consult Hospitalist Routine Procedures Performed Operation Date: 12/10/20 08:40 Actual Procedures p Right Total Knee Arthroplasty(Right) - Colin Hoskins MD Ordered Studies 12/10/20 05:00 US - OR guided needle placemen Routine Hospital Course (1) Primary osteoarthritis of right knee: Date of Service December 11, 2020 Assessment & Plan (1) Primary osteoarthritis of right knee: POD#1 right TKA -Pain management -DVT prophylaxis-SCDs, TEDs, ASA 81mg BID -PT/OT -AM labs-leukocytosis likely reactive due to surgical stress and periop steroids. Hemoglobin at 12.3 from 14 preop -D/c planning-home with OPPT. Will recheck later today after PT to see how therapy went and recheck his hemovac output. - Possible d/c today vs tomorrow. (Hemovac drainage reasonable for surgery. Plan for discontinuation and discharged home.) Admission and Anticipated Discharge Date Admission Date: December 10, 2020 Subjective Patient is POD#1 right TKA. Doing well this morning, pain controlled. No other complaints. Denies chest pain, sob, dizziness, n/v/d, fever, chills. Hemoglobin 12.3 Review of Systems Review of Systems: All systems reviewed & are unremarkable except as noted in HPI & below Physical Exam Physical Exam: Right knee dressing is c/d/i. toes mobile with good dorsiflexion. No calf tenderness. Distally n/v status and sensation intact. Constitutional: well developed and well nourished; no acute distress Results & Data ([facility]) Vital Signs (Past 12 Hours) Vital Signs Temp Pulse Pulse Resp BP Pulse Ox 12/11/20 07:31 37.0 C 59 L 18 124/70 94 12/11/20 02:25 36.4 C L 70 20 119/69 93 12/10/20 21:55 36.8 C 62 127/70 93 Total Time Total Time Spent Total Time Spent (In Minutes): 5 Discharge Plan Discharge Items Patient Disposition: Home - Self-Care Reason For Visit: Unilateral Primary Osteoarthritis,Right Knee Discharge Diagnosis: Right knee osteoarthritis Activity: Per Instructions section Weightbearing: Right weightbearing Weightbearing Comment: as tolerated with walker Non-emergency contact: Surgeon Call non-emergency contact if: you have any medication questions, your pain is not controlled, your pain is worsening, you have a fever, your temperature is above 101, your wound has increased redness and your wound has increased drainage Follow-up/Referrals: Colin Hoskins MD [Surgeon] - 12/25/20 9:30 am (follow up 10-14 days from the day of surgery) Micah Fabian D.O. [Primary Care Provider] - 12/16/20 9:30 am (APPT WITH ROHAN LOZADA) Diet: Regular Addtl Attending Provider Instructions: ACTIVITY RECOMMENDATIONS: SELF CARE INSTRUCTIONS AFTER TOTAL KNEE REPLACEMENT A. You may need to continue a physical therapy program after discharge from the hospital. There are several options available to you. Your doctor will assist you in selecting the best one for you. 1. An out-patient facility 2 to 3 times a week for therapy or home therapy. 2. Continue working on all exercises taught to you in the hospital. Your goals should be to increase bending of your knee to 90 degrees and beyond and to fully straighten your knee. B. You may progress at your own pace from walking with a walker or crutches to a cane; then to no assistive devices. C. Make walking a part of your daily routine. Be up as much as comfortable with rest periods throughout the day. Rest with leg elevation is very important. Use the ice wrap frequently for the first 3-4 weeks. D. There are no restrictions on activities. You may ride in a car, shop, participate in workforce consultant and all social activities. E. Wear the long elastic stockings (BEVERLY hose) 20 hours a day for 2 weeks after surgery. They can be removed several times a day for laundering and for a bath. F. You may shower, no tub baths until cleared by your doctor. SPECIAL CARE INSTRUCTIONS: VERY IMPORTANT TO READ AND REVIEW A. There are a few signs you need to watch for after you are home. Call [facility] if you notice any of the followin. Increased severe knee pain. Some pain is expected especially when you exercise. 2. Increased swelling in your leg or knee; pain or swelling of the calf muscle in either lower leg. 3. Any fluid drainage from the incision. 4. Shortness of breath or chest pain. B. Please call [facility] at if you have any concerns or questions about your operation or recovery. The doctor or his nurse will return your call promptly. C. You must take antibiotics before dental work, bladder, bowel or other surgery. Your doctor will provide you with a permanent care to carry describing this precaution. IMPORTANT: * REMEMBER TO TAKE ASPIRIN, 81 MG, TWICE DAILY FOR 4 WEEKS UNLESS OTHERWISE DIRECTED. THIS IS YOUR BLOOD THINNER. * HIGH RISK PATIENTS MAY BE PRESCRIBED A STRONGER BLOOD THINNER. THIS WILL BE PROVIDED AT DISCHARGE. * CALL IF INCREASED PAIN, REDNESS, DRAINAGE OR FEVER GREATER THAT 101. * WEAR BEVERLY HOSE 20 HOURS PER DAY FOR 2 WEEKS. This is a large suction dressing covering your incision. This will help pull any excess drainage from the wound and allow your incision to heal properly. You may shower with this if you can keep the unit outside of the shower. If any bleeding or leakage is noted please call your doctor's office. This will remain on your incision for 7 days and then should be removed. This can be done yourself or by the home nursing staff if applicable. The entire unit is disposable once removed. Once removed, keep incision clean and dry. If redness or drainage is noted, please call your surgeon. IF INCISION IS LEAKING THROUGH DRESSING, CALL THE OFFICE . FOLLOW UP VISIT: If appointment is not already scheduled: Please call [facility] [place] [place] to make a follow-up appointment for 2 weeks after your surgery at . Stand-Alone Forms: My [facility] [place], Smoking Cessation Medications and DC Order Prescriptions: New acetaminophen 500 mg Tablet 1,000 mg PO Q8 Qty: 60 RF: 0 aspirin 81 mg Tablet,Delayed Release (Dr/Ec) 81 mg PO BID Qty: 60 RF: 0 oxycodone 5 mg Tablet 5 - 10 mg PO .Q4h-6h MDD 6 PRN (Reason: pain) Qty: 30 RF: 0 Continued multivitamin Tablet 1 tab PO QPM RF: 0 simvastatin 10 mg Tablet 10 mg PO PM RF: 0 omeprazole 40 mg Capsule,Delayed Release(Dr/Ec) 40 mg PO QPM RF: 0 meloxicam 15 mg Tablet 15 mg PO QAM RF: 0 Discontinued aspirin 81 mg Tablet,Delayed Release (Dr/Ec) 81 mg PO QPM RF: 0 Discharge Orders: Discharge Order (Routine); Ordered 12/11/20 Ordered By: Antoni Ulrich Admission Data Admit Date/Time: 12/10/20 11:16 Attending Provider: Colin Hoskins Admit Provider: Colin Hoskins Primary Care Provider: Micah Fabian Other Providers: Bi Abreu Other Interventions: Discharge Summary Assessment (RN) Last Done: 12/11/20 13:59
== END 2020-12-11 14:44 | disposition home or self-care (01) ==
LOC: 3W 06:03 → ASU 06:03
DX: M17.11 Unilateral primary osteoarthritis, right knee; Z68.41 Body mass index [BMI] 40.0-44.9, adult; Z20.822 Contact with and (suspected) exposure to COVID-19; Z87.891 Personal history of nicotine dependence; Z79.899 Other long term (current) drug therapy; Z79.82 Long term (current) use of aspirin; E78.5 Hyperlipidemia, unspecified; Z91.040 Latex allergy status; K21.9 Gastro-esophageal reflux disease without esophagitis; Z86.16 Personal history of COVID-19; E66.9 Obesity, unspecified; Z98.1 Arthrodesis status

== ENCOUNTER 2021-03-11 07:35 | Observation (INO) ==
--- NOTE | 2021-03-02 12:40 | Anesthesiology Consultation ---
Date of Service March 02, 2021 Assessment & Plan (1) Encounter for pre-operative examination: Chart Review Chart Review: Acceptable Risk for Surgery and Patient NOT seen in Pre Admission Testing Consults Requested none History Surgery Operation Date: 03/11/21 09:00 Proposed Procedures p Left Total Knee Arthroplasty - Colin Hoskins MD Height/Weight Height: 5 ft 4 in Weight: 106.141 kg Allergies Allergy/AdvReac Type Severity Reaction Status Date / Time latex AdvReac Mild Skin Verified 03/01/21 13:44 redness Medications Home Medications Medication Instructions Recorded Confirmed Last Taken multivitamin 1 tab PO QPM 05/10/19 03/01/21 12/09/20 17:00 omeprazole 40 mg capsule,delayed 40 mg PO QPM 05/10/19 03/01/21 12/09/20 17:00 release simvastatin 10 mg tablet 10 mg PO PM 05/10/19 03/01/21 12/09/20 17:00 meloxicam 15 mg tablet 15 mg PO QAM 11/10/20 03/01/21 12/04/20 acetaminophen 500 mg tablet 1,000 mg PO Q8 PRN 03/01/21 03/01/21 Unknown aspirin 81 mg tablet,delayed 81 mg PO QPM 03/01/21 03/01/21 Unknown release Past Medical History Medical History GERD (gastroesophageal reflux disease) controlled History of COVID-19 Dx early 06/2020 ([facility], [employer]) > symptoms at time of URI symptoms, rhinorrhea, decreased taste > resolved/recovered at home Hyperlipidemia Osteoarthritis Past Family History Family History Other No known health problems Past Surgical History Surgical History Difficult airway for intubation WITH SHOULDER SURGERY [facility] 06/13/2019 History of arthroscopy of shoulder Right shoulder arthroscopy with large RCR (06/13/19): Grade 1 view with Glidescope #4, ETT 8.0 + PNB at [facility] History of back surgery Lower lumbar fusion (as teen) History of colonoscopy AGE 50 History of esophagogastroduodenoscopy (EGD) History of meniscectomy of left knee History of right inguinal hernia repair History of total knee replacement RIGHT 12/10/20 History of vasectomy History of vocal cord polypectomy Vocal cord polyp excision (09/26/17): Grade view 2, Diehl#2, 6.0 laser tube/glidescope used to verify placement History of wisdom tooth extraction Status post LASIK surgery Social History Smoking Status: Former smoker tobacco type: cigarettes Do You Dip or Chew Tobacco: Yes (1 CAN PER WEEK) Smoking End Date: QUIT YRS AGO Hx Alcohol Use: Yes Alcohol type: beer alcohol intake frequency: a few times a month Hx Substance Use: No substance use type: does not use Testing Laboratory Results Laboratory Tests 02/12/21 02/12/21 02/12/21 11:52 11:52 11:52 WBC 6.37 Hgb 13.8 L Hct 42.2 Plt Count 191 PT 10.3 INR 1.0 APTT 26.2 Sodium Potassium Chloride Carbon Dioxide BUN Creatinine Glucose Hemoglobin A1c 5.6 02/12/21 11:52 WBC Hgb Hct Plt Count PT INR APTT Sodium 138 Potassium 3.9 Chloride 106 Carbon Dioxide 25 BUN 19 H Creatinine 0.70 Glucose 87 Hemoglobin A1c Electrocardiogram Date: 11/12/20 Findings: + NSR @ Chest X-Ray Date: 11/12/20 Findings: + NAD
--- NOTE | 2021-03-09 08:50 | History & Physical Report ---
Date of Service March 09, 2021 Assessment & Plan (1) Primary osteoarthritis of left knee: Plan: Treatment options discussed with patient. He has failed conservative measures. He would like to proceed with knee replacement. Risks, benefits and alternatives to surgery including but not limited to infection, DVT, pain, stiffness, need for revision surgery, damage to blood vessels, damage to nerves, PE, , were discussed with the patient and they wish to proceed. Plan on left total knee arthroplasty at [facility] on 03/11/21. Will plan on outpatient PT, as well as ASA 81mg BID x 1 mo post op for DVT prophylaxis. All questions answered. He will follow up post op. History of Present Illness Chief Complaint: Left knee pain Primary Care Provider: Micah Fabian 60 year old male with PMHx significant for high cholesterol and GERD presents with longstanding left knee pain. Pain interfering with his ability to carry out normal daily and leisure activities. He has failed conservative measures including multiple injections, bracing, NSAIDs, and Tylenol. He would like to proceed with surgical intervention. Recent right knee replacement and has done well. Patient denies headaches, sweats, fevers, chills, double vision, blurred vision, cough, sore throat, dysphagia, chest pain, sob, wheezing, n/v/d/c, numbness, tingling, fatigue, urinary symptoms, mood disorders. ROS positive for left knee pain and stiffness. Allergies Allergy/AdvReac Type Severity Reaction Status Date / Time latex AdvReac Mild Skin Verified 03/01/21 13:44 redness Home Medications Medication Instructions Recorded Confirmed Type multivitamin 1 tab PO QPM 05/10/19 03/01/21 History omeprazole 40 mg capsule,delayed 40 mg PO QPM 05/10/19 03/01/21 History release simvastatin 10 mg tablet 10 mg PO PM 05/10/19 03/01/21 History meloxicam 15 mg tablet 15 mg PO QAM 11/10/20 03/01/21 History acetaminophen 500 mg tablet 1,000 mg PO Q8 PRN 03/01/21 03/01/21 History aspirin 81 mg tablet,delayed 81 mg PO QPM 03/01/21 03/01/21 History release Past Med/Surg History Medical History (Updated 03/09/21 @ 08:49 by Don Carty) GERD (gastroesophageal reflux disease) controlled History of COVID-19 Dx early 06/2020 ([facility] [employer] > symptoms at time of URI symptoms, rhinorrhea, decreased taste > resolved/recovered at home Hyperlipidemia Osteoarthritis Surgical History Difficult airway for intubation WITH SHOULDER SURGERY [facility] 06/13/2019 History of arthroscopy of shoulder Right shoulder arthroscopy with large RCR (06/13/19): Grade 1 view with Glidescope #4, ETT 8.0 + PNB at [facility] History of back surgery Lower lumbar fusion (as teen) History of colonoscopy AGE 50 History of esophagogastroduodenoscopy (EGD) History of meniscectomy of left knee History of right inguinal hernia repair History of total knee replacement RIGHT 12/10/20 History of vasectomy History of vocal cord polypectomy Vocal cord polyp excision (09/26/17): Grade view 2, Diehl#2, 6.0 laser tube/glidescope used to verify placement History of wisdom tooth extraction Status post LASIK surgery Family History Other No known health problems Social History Smoking Status: Former smoker Second Hand Exposure: Yes (CO-WORKERS SMOKE/PARENTS SMOKED); Hx Alcohol Use: Yes Alcohol type: beer Hx Substance Use: No Preferred Language: German Communication Ability: Effective Human Resources Partner Required: No Beliefs That Will Affect Care: None marital status: Current Living Situation: Spouse Feels Safe at Home: Yes Assistive Devices: Glasses Review of Systems All systems reviewed & are unremarkable except as noted in HPI & below Physical Exam Constitutional: well developed and well nourished; no acute distress Eyes: PERRL, conjunctivae normal, anicteric sclerae ENMT: external ear and nose normal, oropharynx normal Neck: trachea midline, no thyromegaly Respiratory: normal respiratory effort, lungs clear to auscultation Cardiovascular: RRR, no murmur, no edema Musculoskeletal: Left knee: Varus alignment. Mild effusion. Mild crepitation. Tenderness medial joint line. Stable to varus stress, mild laxity with valgus stress. Positive Bhupendra's. ROM 0-125 degrees. Skin: no rashes, warm and dry Neurologic: patellar DTR's 2+ bilat, sensation intact Psychiatric: A+Ox3, euthymic affect Results & Data ([facility]) Diagnostic Findings Left knee: Bone on bone medial compartment with periarticular osteophyte formation, arthritic change patellofemoral compartment
[~2021-03-11 07:35] MED LIST changes: +LR 500ML BOLUS IV SCH; -LR 500ML BOLUS, THEN 15ML/HR IV SCH
[2021-03-11] MEDS ORDERED: LIDOCAINE 2% 2 ML VIAL/AMP(20MG/ML) INFIL ONE (07:58)
[2021-03-11] MEDS ORDERED: ePHEDrine sulfate 50 MG/ML SYR ONE (07:58)
[2021-03-11] MEDS ORDERED: PROPOFOL IV EMULSION 10 MG/ML 20 ML VIAL IV ONE (07:58)
[2021-03-11] MEDS ORDERED: MIDAZOLAM HCL 1 MG/ML 2ML VIAL ONE (07:59)
[2021-03-11] MEDS ORDERED: fentaNYL citrate 100 MCG/2 ML VIAL ONE (07:59)
--- NOTE | 2021-03-11 09:35 | History & Physical Bridge Note ---
Date of Service March 11, 2021 History & Physical Bridge Note I have examined the patient, reviewed the History & Physical and in the interval since the performance of the History & Physical I have noted the following changes of clinical significance: no changes noted
[2021-03-11] MEDS ORDERED: EPINEPHrine INJ 1 MG/ML AMP ONE (09:39)
[2021-03-11] MEDS ORDERED: BUPIVACAINE 0.5 % 5 MG/1 ML PF 10ML VIAL ONE (09:39)
[2021-03-11] MEDS ORDERED: ROPIVACAINE 0.5% 5 MG/ML 30 ML VIAL ONE (09:39)
[2021-03-11] MEDS ORDERED: ORTHO JOINT ANESTHETIC ONE (10:05)
--- NOTE | 2021-03-11 12:48 | Post Operative Brief Note ---
Immediate Post Op Note v1 Date of Surgery March 11, 2021 Pre & Post Diagnosis Operation Date: 03/11/21 09:20 Pre-Op Diagnosis: Osteoarthritis, Left Knee, obesity BMI 39.1 Post-Op Diagnosis: Osteoarthritis, Left Knee, obesity BMI 39.1 I identified the patient and participated in the time-out.: Yes Procedure Operation Date: 03/11/21 09:20 Actual Procedures p Left Total Knee Arthroplasty(Left), superficial wound VAC application- Colin Hoskins MD Surgeon Colin Hoskins MD Levi Maker Derek MADRIGAL Estimated Blood Loss 5 Findings Consistent with Post-Op Diagnosis Specimens Bone cuts Drains Hemovac Drain Anesthesia Type MAC Spinal Regional Complications none Disposition Accompanied Patient To Recovery: No Disposition: Recovery Room Overlapping Procedure I was immediately available: during the entire case.
--- NOTE | 2021-03-11 12:55 | Operative Report ---
Post Operative Report Pre & Post Diagnosis Operation Date: 03/11/21 09:20 Pre-Op Diagnosis: Osteoarthritis, Left Knee, obesity BMI 39.1 Post-Op Diagnosis: Osteoarthritis, Left Knee, obesity BMI 39.1 I identified the patient and participated in the time-out.: Yes Procedure Operation Date: 03/11/21 09:20 Actual Procedures p Left Total Knee Arthroplasty(Left), application superficial wound VAC- Colin Hosknis MD Surgeon Colin Hoskins MD Picker [employer] Packer Derek MADRIGAL Estimated Blood Loss 5 Findings Consistent with Post-Op Diagnosis Specimens Bone cuts Drains 2 Hemovac Anesthesia Type MAC Spinal Regional Complications None Disposition Disposition: Recovery Room Indications 60-year-old male with history of bilateral knee pain end-stage medial compar tment osteoarthritis with varus knees. He has successful right knee replacement December 2020 and now wants to proceed with staged left total knee replacement. Description of Procedure Patient was taken to the operating room placed supine on the operating table and anesthetized under spinal MAC regional block anesthesia. Exam under anesthesia demonstrated very obese left upper thigh with varus knee no pseudolaxity no instability 0 through 120 degrees range of motion. A pneumatic tourniquet was placed about the obese thigh of the left lower extremity. The left lower extremity was prepped and draped in usual fashion. The leg was elevated exsanguinated with an Esmarch bandage and the pneumatic was raised to 350 mm mercury. An anterior incision was made across the left knee. The skin was incised longitudinally subcutaneous flaps were elevated and an incision was made through the medial retinaculum extending up into the mid third of the quadriceps tendon and extended down to the medial tibial tubercle. Intra-articular findings demonstrated tricompartmental osteoarthritis [id number] medial compartment with eburnated bone.. The knee was exposed by excising the infrapatellar fat pad, excising the meniscal remnants and anterior cruciate ligament. Any inflamed synovial tissue was resected. The fat pad over the anterior femur was resected for placement of the component in that area. The lateral synovial bands were release. The femur was exposed. The custom femoral cutting block was pinned in position. The distal femoral cutting block was applied. The distal femoral cut was made with the oscillating saw. The size 7, 4-in-1 cutting block was placed. The anterior and posterior chamfer cuts were made. The knee was extended and a subperiosteal peel lateral release was performed around the patella. The patella width was measured and width was reproduced using freehand cut technique. The 32 millimeter symmetrical patella was used. 3 drill holes are made for the pegs. The tibia was exposed. A custom tibial cutting block was positioned and drill holes were made for the cutting guide. Cutting guide was placed and the proximal cut was made with the oscillating saw. All osteophytes were resected. The lamina casting room operator was used to assess ligamentous balance and the ligaments were balanced in extension and flexion. This required a medial and posterior medial release of the tibia and pie crusting the MCL. The tibia was reexposed and measured for a size E tibial component. This was externally rotated in line with the tibial tubercle and the fixation pins were drilled. The proximal tibia was fashioned with the drill and punch. The size 7 CR femoral trial was inserted. The trial MC inserts were used. The 13 mm insert gave balanced ligaments through full range of motion. The patella tracked centrally. the trials were removed. The orthomix anesthetic cocktail was injected per protocol. The knee was then copiously irrigated with pulsatile lavage saline solution. The final components were cemented with Refobecin cement. The final components were [employer] persona 7 standard left CR femoral component, E tibia, 13 MC tibial polyethylene, 32 symmetrical patella.. After the cement cured with the knee in full extension the Betadine soak was used per protocol. The knee joint was copiously irrigated with saline solution. 2 drains were brought out laterally and connected to a Hemovac. The quadriceps tendon and medial retinaculum were closed with interrupted [id number] #1 Vicryl sutures. The knee was taken through a full range of motion and repair was secure. The subcutaneous tissues were closed with 2-0 Vicryl sutures and skin was closed with woody. Carson and Acticoat superficial wound VAC was applied and the patient tolerated the procedure well. Derek MADRIGAL my physician clerical administrative assistant, assisted in soft tissue retraction instrument management leg positioning the closure and will participate in the postoperative care of the patient. I attest to the content of the Intraoperative Record and any orders documented therein. Any exceptions are noted below.
--- NOTE | 2021-03-11 13:03 | XRay Report ---
LEFT KNEE 2 VIEWS History: Left total knee arthroplasty. Degenerative arthritis. Postop. FINDINGS: The patient is status post a left total knee arthroplasty. The hardware is intact. No fract ure or dislocation. Skin woody and surgical drains are in place. IMPRESSION: Left total knee arthroplasty. No evidence for hardware complication. ACT 112: Negative or not required by law. Electronically signed by: Jorge Jeffrey M.D. 03/11/2021 1:02 PM
--- NOTE | 2021-03-11 13:34 | Anesthesiology Progress Note ---
Date of Service March 11, 2021 Anesthesia Post Procedure Vital Signs Vital Signs: Temp Pulse Pulse Resp BP BP Pulse Ox 03/11/21 13:20 68 20 116/74 96 03/11/21 13:10 56 L 14 113/73 96 03/11/21 13:00 59 L 13 119/71 95 03/11/21 12:50 65 14 112/82 99 03/11/21 12:40 71 14 128/57 L 99 03/11/21 12:33 36.1 C L 80 16 119/58 L 96 03/11/21 07:43 36.8 C 76 20 143/87 H 95 Transfer of Care Handoff Completed per policy Notes Mental Status: alert / awake / arousable Patient Amnestic to Procedure: Yes Nausea / Vomiting: adequately controlled Pain: adequately controlled Airway Patency, RR, SpO2: stable & adequate BP & HR: stable & adequate Hydration State: stable & adequate Neuraxial Anesthesia: was administered and sensory block is resolving Anesthetic Complications: no major complications apparent
[2021-03-11] MEDS ORDERED: ONDANSETRON INJ 2 MG/ML 2 ML VIAL IV PRN (14:37)
[2021-03-11] MEDS ORDERED: HYDROmorphone INJ 0.5 MG/0.5 ML SYR IV PRN (14:37)
[2021-03-11] MEDS ORDERED: NALOXONE HCL 0.4 MG/1 ML VIAL/CARP IV PRN (14:37)
[2021-03-11] MEDS ORDERED: METOCLOPRAMIDE HCL INJ 5 MG/ML 2 ML VIAL IV PRN (14:37)
[2021-03-11] MEDS ORDERED: TAMSULOSIN HCL 0.4 MG CAP PO PRN (14:37)
[2021-03-11] MEDS ORDERED: bisacodyL 10 MG SUPP PR PRN (14:37)
[2021-03-11] MEDS ORDERED: MAGNESIUM HYDROXIDE SUSP 30 ML UDC PO PRN (14:37)
[2021-03-11] MEDS: SODIUM CHLORIDE 0.9% 1000ML 1,000 ML IV SCH (16:41)
[2021-03-11] MEDS: ACETAMINOPHEN 500 MG TAB PO SCH ×2 (16:41→23:02)
[2021-03-11] MEDS: ceFAZolin 2000MG 2,000 MG/15 ML SYR IV SCH (18:14)
[2021-03-11] MEDS: oxyCODONE HCL IR 5 MG TAB (IMMEDIATE RELEASE) PO PRN (19:48)
[2021-03-11] MEDS: ASPIRIN 81 MG ECTAB PO SCH (20:57)
[2021-03-11] MEDS: SENNA 8.6 MG TAB PO SCH (20:57)
[2021-03-11] MEDS: SIMVASTATIN 10 MG TAB PO SCH (20:58)
[2021-03-11] MEDS: MULTIVITAMIN TAB PO SCH (20:58)
[2021-03-11] MEDS: CeleBREX 200 MG CAP PO SCH (20:58)
[2021-03-11] MEDS: DOCUSATE SODIUM 100 MG CAP PO SCH (20:58)
[2021-03-11] MEDS: PANTOprazole 40 MG TAB PO SCH (20:59)
[2021-03-12] MEDS: ceFAZolin 2000MG 2,000 MG/15 ML SYR IV SCH (01:51)
[2021-03-12] MEDS: SODIUM CHLORIDE 0.9% 1000ML 1,000 ML IV SCH (01:52)
[2021-03-12] MEDS: ACETAMINOPHEN 500 MG TAB PO SCH ×3 (05:58→22:11)
--- NOTE | 2021-03-12 07:14 | Orthopedic Progress Note ---
Date of Service March 12, 2021 Assessment & Plan (1) Status post total left knee replacement: Plan: POD#1 Left TKA -PT/OT -Pain management as written -DVT prophylaxis-SCDs, TEDs, ASA 81mg BID -Am labs pending -D/C planning-home with OPPT. Will recheck later today after therapy and recheck hemovac output. Admission and Anticipated Discharge Date Admission Date: March 11, 2021 Review of Systems Review of Systems: All systems reviewed & are unremarkable except as noted in Subjective Physical Exam Physical Exam: Left knee: Dressing is c/d/i, toes mobile. Mild weakness with dorsiflexion. Distally sensation and n/v status intact. No calf tenderness. Constitutional: well developed and well nourished; no acute distress Results & Data ([facility]) Vital Signs (Past 12 Hours) Vital Signs Temp Pulse Resp BP Pulse Ox 03/12/21 02:48 36.4 C L 62 16 126/69 97 03/11/21 22:16 36.7 C 70 16 119/66 92 03/11/21 19:35 36.6 C 88 16 116/70 92
[2021-03-12] MEDS: DOCUSATE SODIUM 100 MG CAP PO SCH ×2 (08:37→20:29)
[2021-03-12] MEDS: ASPIRIN 81 MG ECTAB PO SCH ×2 (08:37→20:29)
[2021-03-12] MEDS: CeleBREX 200 MG CAP PO SCH ×2 (08:37→20:29)
[2021-03-12] MEDS ORDERED: MULTIVITAMIN TAB PO SCH (09:00)
[2021-03-12 09:12] LABS: Hematocrit (blood only) 39.9 % (42-52); Mean Corpuscular Hemoglobin 33.1 pg (25-34); Mean Corpuscular Hgb Conc 32.6 g/dL (32-36); Mean Corpuscular Volume 101.5 fL (80-100); Mean Platelet Volume 11.5 fL (7.4-10.4); Platelet Count 182 K/uL (130-400); Red Blood Count 3.93 M/uL (4.7-6.1); White Blood Count 15.27 K/uL (4.8-10.8)
[2021-03-12] MEDS: oxyCODONE HCL IR 5 MG TAB (IMMEDIATE RELEASE) PO PRN ×4 (09:15→20:27)
[2021-03-12 09:40] LABS: BUN Creatinine Ratio 20.1 (10-20); Calcium 8.6 mg/dl (8.5-10.1); Creatinine Clr Calc Pharmacy 113.9 ml/min; Est GFR (African American) 115.4 ml/min; Est GFR (Non-African American) 99.6 ml/min; Potassium 3.8 mmol/L (3.5-5.1)
--- NOTE | 2021-03-12 09:45 | Hospitalist Consultation ---
Date of Consultation March 12, 2021 Assessment & Plan (1) Status post total left knee replacement: Status post left TKA Doing well, hemoglobin only minimal drop to 13.0 Continue pain control, bowel regimen DVT prophylaxis with BEVERLY Mcwilliams, aspirin 81 mg p.o. twice daily PT/OT-plan is for home with outpatient physical therapy possibly later today (2) Macrocytosis: Chronically elevated MCV Follow-up with PCP-recommend checking B12, folate, for liver dysfunction, alcohol use if not already performed If all above negative, recommend work-up for MDS Discussed this with patient (3) Impaired glucose tolerance: Blood sugar 138 this morning but likely received steroids preoperatively with anesthesia Recent hemoglobin A1c only 5.6% as an outpatient and he has worked to lose over 30 pounds in the last several months No need for insulin or Accu-Cheks Follow-up with PCP Encouraged continued low carbohydrate diet and weight loss (4) GERD (gastroesophageal reflux disease): Continue PPI No acute issues (5) Hyperlipidemia: Continue simvastatin (6) DVT prophylaxis: Aspirin 81 mg p.o. twice daily, BEVERLY Mcwilliams Disposition-as per orthopedic surgery, medically stable and hospital service will sign off at this time Please feel free to reconsult if new or acute issues arise History of Present Illness Reason for Consultation: Postop medical management Requesting Physician: Dr. Hoskins Attending Physician: Colin Hoskins MD History of Present Illness This patient is a 60-year-old male with a history of impaired glucose tolerance, macrocytosis, GERD, hyperlipidemia, and GINO who is admitted to the hospital after having a left TKA. He reports doing very well and is hoping to go home later today as long as his drain amount decreases as per orthopedics. He denies any chest pain shortness of breath, no abdominal pain or nausea. He is eating and drinking. No lightheadedness. He is making urine and fully emptying his b ladder but does notice a pink tinge to his urine. Allergies Allergy/AdvReac Type Severity Reaction Status Date / Time latex AdvReac Mild Skin Verified 03/11/21 07:54 redness Home Medications Medication Instructions Recorded Confirmed Type multivitamin 1 tab PO QPM 05/10/19 03/11/21 History omeprazole 40 mg capsule,delayed 40 mg PO QPM 05/10/19 03/11/21 History release simvastatin 10 mg tablet 10 mg PO PM 05/10/19 03/11/21 History meloxicam 15 mg tablet 15 mg PO QAM 11/10/20 03/11/21 History acetaminophen 500 mg tablet 1,000 mg PO Q8 PRN 03/01/21 03/11/21 History aspirin 81 mg tablet,delayed 81 mg PO QPM 03/01/21 03/11/21 History release acetaminophen 500 mg tablet 1,000 mg PO Q8 #60 tab 03/12/21 Rx (Tylenol Extra Strength) aspirin 81 mg tablet,delayed 81 mg PO BID #60 tab 03/12/21 Rx release celecoxib 200 mg capsule (Celebrex) 200 mg PO BID #60 cap 03/12/21 Rx oxycodone 5 mg tablet 5 - 10 mg PO .Q4h-6h PRN #30 tab 03/12/21 Rx MDD 6 Patient History Medical History GERD (gastroesophageal reflux disease) controlled History of COVID-19 Dx early 06/2020 ([facility] [place]) > symptoms at time of URI symptoms, rhinorrhea, decreased taste > resolved/recovered at home Hyperlipidemia Osteoarthritis Surgical History Difficult airway for intubation WITH SHOULDER SURGERY [facility] 06/13/2019 History of arthroscopy of shoulder Right shoulder arthroscopy with large RCR (06/13/19): Grade 1 view with Glidescope #4, ETT 8.0 + PNB at [facility] History of back surgery Lower lumbar fusion (as teen) History of colonoscopy AGE 50 History of esophagogastroduodenoscopy (EGD) History of meniscectomy of left knee History of right inguinal hernia repair History of total knee replacement RIGHT 12/10/20 History of vasectomy History of vocal cord polypectomy Vocal cord polyp excision (09/26/17): Grade view 2, Diehl#2, 6.0 laser tube/glidescope used to verify placement History of wisdom tooth extraction Status post LASIK surgery Family History Other No known health problems Social History Smoking Status: Former smoker Smoking End Date: QUIT YRS AGO; Second Hand Exposure: Yes; Do You Dip or Chew Tobacco: Yes (1 CAN PER WEEK); Hx Alcohol Use: Yes Alcohol type: beer Hx Substance Use: No Preferred Language: Slovak Communication Ability: Effective Transportation Department Supervisor Required: No Beliefs That Will Affect Care: None marital status: Current Living Situation: Spouse Other Information That Helps Us Care for You: No Feels Safe at Home: Yes Safety Concerns: Feels Safe At This Time Assistive Devices: Cane and Walker Review of Systems Review of Systems: All systems reviewed & are unremarkable except as noted in HPI & below Physical Exam Constitutional: WD/WN, vitals as above Eyes: + anicteric sclerae ENMT: external ear and nose normal, oropharynx normal Neck: trachea midline, no thyromegaly Respiratory: normal respiratory effort, lungs clear to auscultation Cardiovascular: RRR, no murmur, no edema Chest (Breasts): Chest: normal inspection of chest Gastrointestinal (Abdomen): normal bowel sounds, soft, nontender, no hep atosplenomegaly Musculoskeletal: Extremities: + extremities abnormal to inspection (LLE with Vel wrap and dressing in place, drain with bloody drainage), no cyanosis and no clubbing Skin: no rashes, warm and dry Neurologic: moves all extremities and awake; no focal motor deficits Psychiatric: A+Ox3, euthymic affect Lymphatic: no lymphedema Results & Data Results & Data ([facility]) Vital Signs (Past 12 Hours) Vital Signs Temp Pulse Resp BP Pulse Ox 03/12/21 07:15 36.6 C 61 16 126/70 95 03/12/21 02:48 36.4 C L 62 16 126/69 97 03/11/21 22:16 36.7 C 70 16 119/66 92 Laboratory Results 03/12/21 08:56 03/12/21 08:56 PG Care Time/CCT Total # of Minutes Spent Total Time Spent with Patient: Total time spent is greater than 50% in coordination of care (as documented) at patient's floor/unit and/or counseling patient: Coding Level of Care Code 17404 Inpt Consult Level 2 Diagnoses Status post total left knee replacement Z96.652 DVT prophylaxis Z29.9 Macrocytosis D75.89 Impaired glucose tolerance R73.02 GERD (gastroesophageal reflux disease) K21.9 Hyperlipidemia E78.5
[2021-03-12] MEDS: SENNA 8.6 MG TAB PO SCH (20:29)
[2021-03-12] MEDS: PANTOprazole 40 MG TAB PO SCH (20:29)
[2021-03-12] MEDS: MULTIVITAMIN TAB PO SCH (20:30)
[2021-03-12] MEDS: SIMVASTATIN 10 MG TAB PO SCH (20:30)
[2021-03-13] MEDS: ACETAMINOPHEN 500 MG TAB PO SCH (05:40)
--- NOTE | 2021-03-13 07:30 | Orthopedic Progress Note ---
Date of Service March 13, 2021 Assessment & Plan (1) Status post total left knee replacement: Plan: POD#2 Left TKA -PT/OT -Pain management as written -DVT prophylaxis-SCDs, TEDs, ASA 81mg BID -D/C planning-home with OPPT. Plan for discharge to home today. Admission and Anticipated Discharge Date Admission Date: March 11, 2021 Subjective Postop day 2 Patient sitting up in bed sleeping. Easily awoken. No complaints this morning. Pain is controlled. He is looking forward to going home today. Physical Exam Physical Exam: Carson dressing is clean, dry and intact. Calves are soft nontender. Neurovascular is intact. Toes are mobile. Results & Data ([facility]) Vital Signs (Past 12 Hours) Vital Signs Temp Pulse Resp BP Pulse Ox 03/12/21 22:17 36.5 C 67 15 107/63 94
[2021-03-13] MEDS: DOCUSATE SODIUM 100 MG CAP PO SCH (07:44)
[2021-03-13] MEDS: ASPIRIN 81 MG ECTAB PO SCH (07:44)
[2021-03-13] MEDS: CeleBREX 200 MG CAP PO SCH (07:44)
[2021-03-13] MEDS: oxyCODONE HCL IR 5 MG TAB (IMMEDIATE RELEASE) PO PRN (10:49)
--- NOTE | 2021-03-15 16:14 | Discharge Summary ---
Date of Service March 15, 2021 Admission HPI Per Admitting Provider 60 year old male with PMHx significant for high cholesterol and GERD presents with longstanding left knee pain. Pain interfering with his ability to carry out normal daily and leisure activities. He has failed conservative measures including multiple injections, bracing, NSAIDs, and Tylenol. He would like to proceed with surgical intervention. Recent right knee replacement and has done well. Patient denies headaches, sweats, fevers, chills, double vision, blurred vision, cough, sore throat, dysphagia, chest pain, sob, wheezing, n/v/d/c, numbness, tingling, fatigue, urinary symptoms, mood disorders. ROS positive for left knee pain and stiffness. Admission Exam Per Admitting Provider Constitutional: well developed and well nourished; no acute distress Eyes: PERRL, conjunctivae normal, anicteric sclerae ENMT: external ear and nose normal, oropharynx normal Neck: trachea midline, no thyromegaly Respiratory: normal respiratory effort, lungs clear to auscultation Cardiovascular: RRR, no murmur, no edema Musculoskeletal: Left knee: Varus alignment. Mild effusion. Mild crepitation. Tenderness medial joint line. Stable to varus stress, mild laxity with valgus stress. Positive Bhupendra's. ROM 0-125 degrees. Skin: no rashes, warm and dry Neurologic: patellar DTR's 2+ bilat, sensation intact Psychiatric: A+Ox3, euthymic affect Principal Diagnosis Left knee osteoarthritis Discharge Exam Constitutional well developed and well nourished; no acute distress Eyes PERRL, conjunctivae normal, anicteric sclerae ENMT external ear and nose normal, oropharynx normal Neck trachea midline, no thyromegaly Respiratory normal respiratory effort, lungs clear to auscultation Cardiovascular RRR, no murmur, no edema Skin no rashes, warm and dry Neurologic patellar DTR's 2+ bilat, sensation intact Psychiatric A+Ox3, euthymic affect Discharge Data Allergies Allergy/AdvReac Type Severity Reaction Status Date / Time latex AdvReac Mild Skin Verified 03/11/21 07:54 redness Consultations 03/05/21 17:25 Consult Hospitalist Routine Procedures Performed Operation Date: 03/11/21 09:20 Actual Procedures p Left Total Knee Arthroplasty(Left) - Colin Hoskins MD Ordered Studies 03/11/21 05:00 US - OR guided needle placemen Routine Hospital Course (1) Status post total left knee replacement: Patient presented for same day admission following left total knee arthroplasty on 03/11/21. He tolerated procedure well. The Patient had an uneventf ul hospital course. Post-operatively, his activity was progressed and well tolerated. They participated in PT with ambulation distance of 200 feet. ROM of operative knee reached 87 degrees. Labs remained stable- lowest hemoglobin recorded: [address] Sara Crum of medical service was consulted for medical management during admission. Pain controlled on oral medications. Please refer to daily progress notes and PT notes for complete details. After exam on 03/13/21, patient was felt to be stable for discharge home with outpatient PT. Patient will f/u in the office in about 2 weeks for further evaluation including x-rays and incision check, sooner if having any issues or concerns. POD#2 Left TKA -PT/OT -Pain management as written -DVT prophylaxis-SCDs, TEDs, ASA 81mg BID -D/C planning-home with OPPT. Plan for discharge to home today. Total Time Total Time Spent Total Time Spent (In Minutes): 20 Discharge Plan Discharge Items Patient Disposition: Home - Self-Care Reason For Visit: Osteoarthritis, Left Knee Discharge Diagnosis: Left knee osteoarthritis Activity: Per Instructions section Non-emergency contact: Surgeon Call non-emergency contact if: you have any medication questions, your pain is not controlled, your pain is worsening, your pain is concerning for you, you have a fever, your temperature is above 101, your wound has increased redness and your wound has increased drainage Follow-up/Referrals: Micah Fabian D.O. [Primary Care Provider] - Diet: Regular Addtl Attending Provider Instructions: ACTIVITY RECOMMENDATIONS: SELF CARE INSTRUCTIONS AFTER TOTAL KNEE REPLACEMENT A. You may need to continue a physical therapy program after discharge from the hospital. There are several options available to you. Your doctor will assist you in selecting the best one for you. 1. An out-patient facility 2 to 3 times a week for therapy or home therapy. 2. Continue working on all exercises taught to you in the hospital. Your goals should be to increase bending of your knee to 90 degrees and beyond and to fully straighten your knee. B. You may progress at your own pace from walking with a walker or crutches to a cane; then to no assistive devices. C. Make walking a part of your daily routine. Be up as much as comfortable with rest periods throughout the day. Rest with leg elevation is very important. Use the ice wrap frequently for the first 3-4 weeks. D. There are no restrictions on activities. You may ride in a car, shop, participate in patient experience coordinator and all social activities. E. Wear the long elastic stockings (BEVERLY hose) 20 hours a day for 2 weeks after surgery. They can be removed several times a day for laundering and for a bath. F. You may shower, no tub baths until cleared by your doctor. SPECIAL CARE INSTRUCTIONS: VERY IMPORTANT TO READ AND REVIEW A. There are a few signs you need to watch for after you are home. Call [facility] if you notice any of the followin. Increased severe knee pain. Some pain is expected especially when you exercise. 2. Increased swelling in your leg or knee; pain or swelling of the calf muscle in either lower leg. 3. Any fluid drainage from the incision. 4. Shortness of breath or chest pain. B. Please call [facility] at if you have any concerns or questions about your operation or recovery. The doctor or his nurse will return your call promptly. C. You must take antibiotics before dental work, bladder, bowel or other surgery. Your doctor will provide you with a permanent care to carry describing this precaution. IMPORTANT: * REMEMBER TO TAKE ASPIRIN, 81 MG, TWICE DAILY FOR 4 WEEKS UNLESS OTHERWISE DIRECTED. THIS IS YOUR BLOOD THINNER. * HIGH RISK PATIENTS MAY BE PRESCRIBED A STRONGER BLOOD THINNER. THIS WILL BE PROVIDED AT DISCHARGE. * CALL IF INCREASED PAIN, REDNESS, DRAINAGE OR FEVER GREATER THAT 101. * WEAR BEVERLY HOSE 20 HOURS PER DAY FOR 2 WEEKS. This is a large suction dressing covering your incision. This will help pull any excess drainage from the wound and allow your incision to heal properly. You may shower with this if you can keep the unit outside of the shower. If any bleeding or leakage is noted please call your doctor's office. This will remain on your incision for 7 days and then should be removed. This can be done yourself or by the home nursing staff if applicable. The entire unit is disposable once removed. Once removed, keep incision clean and dry. If redness or drainage is noted, please call your surgeon. IF INCISION IS LEAKING THROUGH DRESSING, CALL THE OFFICE . FOLLOW UP VISIT: If appointment is not already scheduled: Please call [facility] to make a follow-up appointment for 2 weeks after your surgery at . Stand-Alone Forms: My [facility], Smoking Cessation Medications and DC Order Prescriptions: New acetaminophen [Tylenol Extra Strength] 500 mg Tablet 1,000 mg PO Q8 Qty: 60 RF: 0 aspirin 81 mg Tablet,Delayed Release (Dr/Ec) 81 mg PO BID Qty: 60 RF: 0 celecoxib [Celebrex] 200 mg Capsule 200 mg PO BID Qty: 60 RF: 0 oxycodone 5 mg Tablet 5 - 10 mg PO .Q4h-6h MDD 6 PRN (Reason: pain) Qty: 30 RF: 0 Continued multivitamin Tablet 1 tab PO QPM RF: 0 simvastatin 10 mg Tablet 10 mg PO PM RF: 0 omeprazole 40 mg Capsule,Delayed Release(Dr/Ec) 40 mg PO QPM RF: 0 Discontinued meloxicam 15 mg Tablet 15 mg PO QAM RF: 0 aspirin 81 mg tablet,delayed release (DR/EC) 81 mg PO QPM RF: 0 acetaminophen 500 mg tablet 1,000 mg PO Q8 PRN (Reason: Pain) RF: 0 Discharge Orders: Discharge Order (Routine); Ordered 03/13/21 Ordered By: Antoni Escobar/Other Patient Handouts: DVT Post Op Prevention, Managing Post-Op Pain at Home Admission Data Admit Date/Time: 03/11/21 12:37 Attending Provider: Colin Hoskins Admit Provider: Colin Hoskins Primary Care Provider: Micah Fabian Other Providers: Sara Crum Other Interventions: Discharge Summary Assessment (RN) Last Done: 03/13/21 08:18
== END 2021-03-13 11:15 | disposition home or self-care (01) ==
LOC: PACUINP 07:35 → ASU 07:35 → 3E 14:37